=== PATIENT | male | born 1970 | race Caucasian/White ===

== ENCOUNTER 2016-05-28 01:58 | Emergency (ER) | payer MEDICAID ==
[~2016-05-28] VITALS: Ht 177.8 cm; Wt 76.7 kg
[~2016-05-28 01:58] MED LIST: CHOLESTEROL MED; HTN MED; REGULAR INSULIN SUBCUT
[2016-05-28 02:53] VITALS: BP_SYST 163
[2016-05-28] MEDS ORDERED: KETOROLAC TROMETHAMINE 60 MG/2 ML VIAL IM ONE (05:00)
[2016-05-28 05:29] VITALS: BP_SYST 163
== END 2016-05-28 05:29 | disposition home or self-care (01) ==
LOC: SED 01:58
DX: E11.40 Type 2 diabetes mellitus with diabetic neuropathy, unspecified (principal); M79.672 Pain in left foot; M79.671 Pain in right foot; I10 Essential (primary) hypertension; Z79.4 Long term (current) use of insulin
CPT/HCPCS: 82962; 96372; 99283; J1885

== ENCOUNTER 2017-05-21 10:20 | Emergency (ER) | payer MEDICAID ==
[~2017-05-21] VITALS: Ht 175.3 cm; Wt 79.4 kg
[2017-05-21 10:37] VITALS: BP_SYST 144
--- NOTE | 2017-05-21 10:42 | NUR ---
Placed in room 1 . Placed on monitoring specialist, blood pressure machine and pulse oximeter. To gown for exam. Side rails up. Report given to Karishma SOTELO.
--- NOTE | 2017-05-21 10:45 | NUR ---
rosalie person at bedside for eval.
--- NOTE | 2017-05-21 10:55 | NUR ---
presents with just falling donw 5 stairs and hit his head with loc. presents with deep lacteration to chin oozing. pt holding guaze to chin. c.o feeling dizzy. vss. sr on monitor. c/o pain to right leg. has full rom. states he has a headache.
[2017-05-21] MEDS ORDERED: DIPH-TET-PERTUS Vaccine 0.5 ML VIAL (ADACEL) I.M. ONE (11:00)
[2017-05-21] MEDS ORDERED: LIDOCAINE 1% 10 MG/ML, 20 ML MDV INJ ONE (11:00)
[2017-05-21 11:05] LABS: BASOPHILS % (AUTO) 0.2 % (0.0-2.0); EOSINOPHILS % (AUTO) 0.1 % (0.0-4.0); HEMATOCRIT 37.1 % (36-54); HEMOGLOBIN 12.9 g/dL (14.0-18.0); LYMPHOCYTES # (AUTO) 0.4 K/uL (1.0-5.5); LYMPHOCYTES % (AUTO) 4.2 % (20.5-51.5); MEAN CORPUSCULAR HEMOGLOBIN 33 pg (27-31); MEAN CORPUSCULAR HGB CONC 35 % (32-36); MEAN CORPUSCULAR VOLUME 94 fL (79.0-98.0); MONOCYTES # (AUTO) 0.4 K/uL (0.0-1.0); MONOCYTES % (AUTO) 4.3 % (1.7-9.3); NEUTROPHILS # (AUTO) 8.6 K/uL (1.8-7.7); NEUTROPHILS % (AUTO) 91.2 % (40.0-70.0); PLATELET COUNT (AUTO) 150 K/uL (130-430); RED BLOOD CELL COUNT(AUTO) 3.97 MIL/uL (4.2-6.2); RED CELL DISTRIBUTION WIDTH 12.9 % (9.0-15.0); WHITE BLOOD COUNT (AUTO) 9.4 K/uL (4.8-10.8)
[2017-05-21 11:19] LABS: ANION GAP 12 (5-15); CALCIUM 9.1 mg/dL (8.4-11.0); CHLORIDE 97 mmol/L (98-107); CREATININE 0.72 mg/dL (0.55-1.30); GLUCOSE 237 mg/dL (70-99); POTASSIUM 3.3 mmol/L (3.5-5.1); SODIUM SERUM 137 mmol/L (136-145); UREA NITROGEN, BLOOD 17 mg/dL (8-21)
[2017-05-21 11:31] LABS: ALANINE AMINOTRANSFERASE 54 U/L (12-78); ASPARTATE AMINOTRANSFERASE 111 U/L (10-37); GFR AFRICAN AMERICAN 151 mL/min (>90); TOTAL BILIRUBIN 2.8 mg/dL (0.0-1.0)
[2017-05-21 11:32] LABS: ACETAMINOPHEN < 1 ug/mL (1-30)
--- NOTE | 2017-05-21 11:35 | NUR ---
laceration to chin cleaned with sterile saline. t dap injection given
[2017-05-21 11:47] LABS: ALCOHOL, BLOOD < 3 mg/dL (<10)
--- NOTE | 2017-05-21 12:10 | NUR ---
BACK FROM CT.
--- NOTE | 2017-05-21 13:19 | NUR ---
URINE SENT TO LAB.
[2017-05-21 13:29] LABS: BILIRUBIN,URINE 1+ (NEGATIVE); BLOOD, URINE NEGATIVE (NEGATIVE); CLARITY/URINE SL HAZY (CLEAR); COLOR,URINE AMBER (YELLOW); GLUCOSE,URINE 2+ (NEGATIVE); KETONES,URINE 3+ (NEGATIVE); LEUKOCYTE ESTERASE ,URINE NEGATIVE (NEGATIVE); NITRITE, URINE NEGATIVE (NEGATIVE); PH,URINE 6.5 (5.0-8.0); PROTEIN URINE TRACE (NEGATIVE)
[2017-05-21 13:35] LABS: BACTERIA,URINE RARE /HPF (None Seen); MUCUS,URINE 1+ /LPF (None Seen); RBC,URINE 0-3 /HPF (0-3); WBC,URINE 0-3 /HPF (0-3)
[2017-05-21 13:40] LABS: BARBITURATE, URINE NEGATIVE (NEG <=200); BENZODIAZEPINE, URINE NEGATIVE (NEG <=150); CANNABINOID, URINE NEGATIVE (NEG <=50); COCAINE, URINE NEGATIVE (NEG <=150); METHAMPHETAMINES SCREEN,URINE NEGATIVE (NEG <=500); OPIATE, URINE NEGATIVE (NEG <=100); PHENCYCLIDINE SCREEN,URINE NEGATIVE (NEG <=25); UR TRICYCLIC ANTIDEPRESSANTS NEGATIVE (NEG <=300); URINE AMPHETAMINE NEGATIVE (NEG <=500); URINE METHADONE NEGATIVE (NEG <=200); URINE OXYCODONE SCREEN NEGATIVE (NEG <=100); URINE PROPOXYPHENE SCREEN NEGATIVE (NEG <=300)
[2017-05-21] MEDS ORDERED: MORPHINE SULFATE 10 MG/ML VIAL ONE (14:17)
--- NOTE | 2017-05-21 14:30 | NUR ---
DR GONZALES BACK IN TO DISCUSS DISCHARGE PLANS WITH PT.
--- NOTE | 2017-05-21 16:30 | NUR ---
Patient given written and verbal discharge instructions and verbalizes understanding. ER MD Zhong discussed with patient the results and treatment provided. Patient in stable condition. ID arm band removed. IV catheter removed intact and dressing applied, no active bleeding. Rx of Tylenol Codeine given. Patient educated on pain management and to follow up with PMD. Pain Scale 1. Dr. Zhong aware. Opportunity for questions provided and answered. Medication side effect fact sheet provided.
[2017-05-21 16:43] VITALS: BP_SYST 132
== END 2017-05-21 16:30 | disposition home or self-care (01) ==
LOC: SED 10:20
DX: S01.81XA Laceration without foreign body of other part of head, initial encounter (principal); S40.011A Contusion of right shoulder, initial encounter; E11.9 Type 2 diabetes mellitus without complications; I10 Essential (primary) hypertension; W10.9XXA Fall (on) (from) unspecified stairs and steps, initial encounter; Y93.01 Activity, walking, marching and hiking; Y92.89 Other specified places as the place of occurrence of the external cause; Y99.8 Other external cause status
CPT/HCPCS: 12013; 36415; 70450; 70486; 72125; 73030; 80053; 80307; 81000; 82550; 82962; 85025; 90471; 90715; 99285; G0480; G0482; J2001; J2270

== ENCOUNTER 2017-11-11 07:37 | Emergency (ER) | payer MEDICAID ==
[~2017-11-11] VITALS: Ht 172.7 cm; Wt 74.8 kg
[2017-11-11 07:40] VITALS: BP_SYST 186
[2017-11-11] MEDS ORDERED: NACL 0.9% 1,000 ML IV ONE ×2 (08:00→08:45)
[2017-11-11 08:03] LABS: BASOPHILS # (AUTO) 0.1 K/uL (0.0-0.2); BASOPHILS % (AUTO) 0.7 % (0.0-2.0); EOSINOPHILS # (AUTO) 0.1 K/uL (0.0-0.4); EOSINOPHILS % (AUTO) 0.7 % (0.0-4.0); HEMATOCRIT 43.7 % (36-54); HEMOGLOBIN 14.8 g/dL (14.0-18.0); LYMPHOCYTES # (AUTO) 2.3 K/uL (1.0-5.5); LYMPHOCYTES % (AUTO) 26.4 % (20.5-51.5); MEAN CORPUSCULAR HEMOGLOBIN 33 pg (27-31); MEAN CORPUSCULAR HGB CONC 34 % (32-36); MEAN CORPUSCULAR VOLUME 96 fL (79.0-98.0); MONOCYTES # (AUTO) 0.5 K/uL (0.0-1.0); MONOCYTES % (AUTO) 6.4 % (1.7-9.3); NEUTROPHILS # (AUTO) 5.6 K/uL (1.8-7.7); NEUTROPHILS % (AUTO) 65.8 % (40.0-70.0); PLATELET COUNT (AUTO) 180 K/uL (130-430); RED BLOOD CELL COUNT(AUTO) 4.55 MIL/uL (4.2-6.2); RED CELL DISTRIBUTION WIDTH 12.2 % (9.0-15.0); WHITE BLOOD COUNT (AUTO) 8.6 K/uL (4.8-10.8)
[2017-11-11 08:17] LABS: ANION GAP 19 (5-15); CALCIUM 9.2 mg/dL (8.4-11.0); CHLORIDE 97 mmol/L (98-107); CREATININE 0.92 mg/dL (0.55-1.30); GLUCOSE 220 mg/dL (70-99); POTASSIUM 3.3 mmol/L (3.5-5.1); SODIUM SERUM 136 mmol/L (136-145); UREA NITROGEN, BLOOD 8 mg/dL (8-21)
[2017-11-11 08:22] LABS: ALANINE AMINOTRANSFERASE 63 U/L (12-78); ALBUMIN 4.5 g/dL (3.4-4.8); ALCOHOL, BLOOD < 3 mg/dL (<10); ASPARTATE AMINOTRANSFERASE 109 U/L (10-37); GFR AFRICAN AMERICAN 114 mL/min (>90); LIPASE 117 U/L (73-393); TOTAL BILIRUBIN 3.3 mg/dL (0.0-1.0)
[2017-11-11] MEDS ORDERED: POTASSIUM CHLORIDE 20 MEQ/PKT PACKET PO ONE (09:00)
[2017-11-11 09:47] VITALS: BP_SYST 167
== END 2017-11-11 09:47 | disposition home or self-care (01) ==
LOC: SED 07:37
DX: F10.239 Alcohol dependence with withdrawal, unspecified (principal); I10 Essential (primary) hypertension
CPT/HCPCS: 36415; 80053; 83690; 85025; 99284; G0482; J7030

== ENCOUNTER 2017-11-14 19:53 | Emergency (ER) | payer MEDICAID ==
[~2017-11-14] VITALS: Ht 170.2 cm; Wt 72.6 kg
[2017-11-14 20:00] VITALS: BP_SYST 140
[2017-11-14] MEDS ORDERED: ONDANSETRON HCL 4 MG/2 ML VIAL IVP ONE (20:15)
[2017-11-14] MEDS ORDERED: FAMOTIDINE PF 20 MG/2 ML VIAL IVP ONE (20:15)
[2017-11-14 20:51] LABS: BASOPHILS % (AUTO) 0.6 % (0.0-2.0); EOSINOPHILS # (AUTO) 0.2 K/uL (0.0-0.4); EOSINOPHILS % (AUTO) 2.2 % (0.0-4.0); HEMATOCRIT 36.4 % (36-54); HEMOGLOBIN 12.9 g/dL (14.0-18.0); LYMPHOCYTES # (AUTO) 2.5 K/uL (1.0-5.5); LYMPHOCYTES % (AUTO) 36.6 % (20.5-51.5); MEAN CORPUSCULAR HEMOGLOBIN 34 pg (27-31); MEAN CORPUSCULAR HGB CONC 36 % (32-36); MEAN CORPUSCULAR VOLUME 95 fL (79.0-98.0); MONOCYTES # (AUTO) 0.6 K/uL (0.0-1.0); MONOCYTES % (AUTO) 9.1 % (1.7-9.3); NEUTROPHILS # (AUTO) 3.6 K/uL (1.8-7.7); NEUTROPHILS % (AUTO) 51.5 % (40.0-70.0); PLATELET COUNT (AUTO) 177 K/uL (130-430); RED BLOOD CELL COUNT(AUTO) 3.81 MIL/uL (4.2-6.2); RED CELL DISTRIBUTION WIDTH 11.9 % (9.0-15.0); WHITE BLOOD COUNT (AUTO) 6.9 K/uL (4.8-10.8)
[2017-11-14 20:52] LABS: CALCIUM 8.3 mg/dL (8.4-11.0); CREATININE 0.75 mg/dL (0.55-1.30)
[2017-11-14 20:55] LABS: PROTHROMBIN TIME 10.2 SECS (9.5-12.5)
[2017-11-14 20:57] LABS: ALBUMIN 3.6 g/dL (3.4-4.8); TOTAL BILIRUBIN 1.1 mg/dL (0.0-1.0)
[2017-11-14 21:31] LABS: BILIRUBIN,URINE NEGATIVE (NEGATIVE); BLOOD, URINE NEGATIVE (NEGATIVE); CLARITY/URINE CLEAR (CLEAR); COLOR,URINE YELLOW (YELLOW); GLUCOSE,URINE NEGATIVE (NEGATIVE); KETONES,URINE NEGATIVE (NEGATIVE); LEUKOCYTE ESTERASE ,URINE NEGATIVE (NEGATIVE); NITRITE, URINE NEGATIVE (NEGATIVE); PROTEIN URINE 1+ (NEGATIVE)
[2017-11-14 21:41] LABS: CKMB RELATIVE INDEX 0.3 (0.0-2.9); CREATINE KINASE MB 1.2 ng/mL (0-3.6)
[2017-11-14 21:43] LABS: BARBITURATE, URINE NEGATIVE (NEG <=200); BENZODIAZEPINE, URINE NEGATIVE (NEG <=150); CANNABINOID, URINE NEGATIVE (NEG <=50); COCAINE, URINE NEGATIVE (NEG <=150); METHAMPHETAMINES SCREEN,URINE NEGATIVE (NEG <=500); OPIATE, URINE NEGATIVE (NEG <=100); PHENCYCLIDINE SCREEN,URINE NEGATIVE (NEG <=25); UR TRICYCLIC ANTIDEPRESSANTS NEGATIVE (NEG <=300); URINE AMPHETAMINE NEGATIVE (NEG <=500); URINE METHADONE NEGATIVE (NEG <=200); URINE OXYCODONE SCREEN NEGATIVE (NEG <=100); URINE PROPOXYPHENE SCREEN NEGATIVE (NEG <=300)
[2017-11-14 22:00] LABS: BACTERIA,URINE FEW /HPF (None Seen); CALCIUM OXALATE CRYSTALS,UR 0-10 /HPF (None Seen); RBC,URINE 0-3 /HPF (0-3); WBC,URINE 0-3 /HPF (0-3); YEAST,URINE None Seen /HPF (None Seen)
[2017-11-14] MEDS ORDERED: NACL 0.9% 1,000 ML IV ONE (22:00)
[2017-11-14 22:01] LABS: MUCUS,URINE 3+ /LPF (None Seen)
[2017-11-15 01:06] VITALS: BP_SYST 124
== END 2017-11-15 01:06 | disposition home or self-care (01) ==
LOC: SED 19:53
DX: F10.129 Alcohol abuse with intoxication, unspecified (principal); R07.9 Chest pain, unspecified; I10 Essential (primary) hypertension; E11.9 Type 2 diabetes mellitus without complications
CPT/HCPCS: 36415; 71045; 80053; 80307; 81000; 82550; 82553; 84484; 85025; 85610; 85730; 93005; 96374; 96375; 99285; G0482; J2405; J3490; J7030

== ENCOUNTER 2017-12-25 20:20 | Inpatient (IN) | payer MEDICAID ==
[~2017-12-25] VITALS: Ht 177.8 cm; Wt 52.6 kg
[2017-12-25 20:25] VITALS: BP_SYST 165
[2017-12-25] MEDS ORDERED: KETOROLAC TROMETHAMINE 60 MG/2 ML VIAL IM ONE (21:00)
[2017-12-25 23:55] LABS: BASOPHILS # (AUTO) 0.1 K/uL (0.0-0.2); BASOPHILS % (AUTO) 0.8 % (0.0-2.0); HEMATOCRIT 40.3 % (36-54); HEMOGLOBIN 13.4 g/dL (14.0-18.0); LYMPHOCYTES # (AUTO) 0.4 K/uL (1.0-5.5); LYMPHOCYTES % (AUTO) 3.9 % (20.5-51.5); MEAN CORPUSCULAR HEMOGLOBIN 32 pg (27-31); MEAN CORPUSCULAR HGB CONC 33 % (32-36); MEAN CORPUSCULAR VOLUME 96 fL (79.0-98.0); MONOCYTES # (AUTO) 0.4 K/uL (0.0-1.0); MONOCYTES % (AUTO) 3.8 % (1.7-9.3); NEUTROPHILS # (AUTO) 10.4 K/uL (1.8-7.7); NEUTROPHILS % (AUTO) 91.5 % (40.0-70.0); PLATELET COUNT (AUTO) 185 K/uL (130-430); RED BLOOD CELL COUNT(AUTO) 4.21 MIL/uL (4.2-6.2); RED CELL DISTRIBUTION WIDTH 12.6 % (9.0-15.0); WHITE BLOOD COUNT (AUTO) 11.3 K/uL (4.8-10.8)
[2017-12-26 00:06] LABS: CALCIUM 9.4 mg/dL (8.4-11.0); CREATININE 0.62 mg/dL (0.55-1.30); POTASSIUM 3.6 mmol/L (3.5-5.1)
[2017-12-26 00:12] LABS: ALBUMIN 3.9 g/dL (3.4-4.8); INR 1.1 (0.80-1.20); PROTHROMBIN TIME 10.9 SECS (9.5-12.5); TOTAL BILIRUBIN 3.9 mg/dL (0.0-1.0)
[2017-12-26] MEDS ORDERED: KETOROLAC TROMETHAMINE 30 MG VIAL IVP PRN (03:30)
[2017-12-26] MEDS ORDERED: MORPHINE 4 MG/ML INJ. SYRINGE IVP PRN (03:30)
[2017-12-26] MEDS ORDERED: HYDROcodone/ACETAMIN 5-325 MG TAB (NORCO/ VICODIN) PO PRN (03:30)
[2017-12-26] MEDS ORDERED: MUPIROCIN 2% TOPICAL OINTMENT 22 GM NS PRN (04:00)
[2017-12-26] MEDS ORDERED: POTASSIUM CHLORIDE 20 MEQ TAB.PRT.SR PO PRN (04:00)
[2017-12-26] MEDS ORDERED: MAGNESIUM SULFATE 50 ML IV PRN (04:00)
[2017-12-26] MEDS ORDERED: DOCUSATE SODIUM 100 MG CAPSULE PO PRN (04:00)
[2017-12-26] MEDS ORDERED: ZOLPIDEM TARTRATE 5 MG TABLET PO PRN (04:00)
[2017-12-26] MEDS ORDERED: PROMETHAZINE HCL 25 MG/ML AMP IVP PRN (04:00)
[2017-12-26] MEDS ORDERED: LORazepam 2 MG/ML VIAL IVP PRN (04:00)
[2017-12-26] MEDS ORDERED: ACETAMINOPHEN 325 MG TABLET PO PRN (04:00)
[2017-12-26 05:02] VITALS: BP_SYST 159
[2017-12-26 05:20] LABS: BILIRUBIN,URINE NEGATIVE (NEGATIVE); CLARITY/URINE CLEAR (CLEAR); COLOR,URINE YELLOW (YELLOW); GLUCOSE,URINE TRACE (NEGATIVE); KETONES,URINE 2+ (NEGATIVE); LEUKOCYTE ESTERASE ,URINE NEGATIVE (NEGATIVE); NITRITE, URINE NEGATIVE (NEGATIVE); PROTEIN URINE 1+ (NEGATIVE)
[2017-12-26 05:31] LABS: PHOSPHORUS 2.1 mg/dL (2.7-4.5)
[2017-12-26] MEDS: NACL 0.9% 1,000 ML IV SCH ×3 (05:33→20:39)
[2017-12-26] MEDS ORDERED: cloNIDine HCL 0.1 MG TABLET PO PRN (05:45)
[2017-12-26 05:52] LABS: BARBITURATE, URINE NEGATIVE (NEG <=200); BENZODIAZEPINE, URINE NEGATIVE (NEG <=150); CANNABINOID, URINE NEGATIVE (NEG <=50); COCAINE, URINE NEGATIVE (NEG <=150); METHAMPHETAMINES SCREEN,URINE POSITIVE (NEG <=500); OPIATE, URINE NEGATIVE (NEG <=100); PHENCYCLIDINE SCREEN,URINE NEGATIVE (NEG <=25); UR TRICYCLIC ANTIDEPRESSANTS NEGATIVE (NEG <=300); URINE AMPHETAMINE POSITIVE (NEG <=500); URINE METHADONE NEGATIVE (NEG <=200); URINE OXYCODONE SCREEN NEGATIVE (NEG <=100); URINE PROPOXYPHENE SCREEN NEGATIVE (NEG <=300)
[2017-12-26 06:00] LABS: ALCOHOL, BLOOD < 3 mg/dL (<10)
[2017-12-26 06:05] LABS: BLOOD, URINE TRACE (NEGATIVE)
[2017-12-26 06:18] LABS: BACTERIA,URINE FEW /HPF (None Seen); MUCUS,URINE 1+ /LPF (None Seen); RBC,URINE 0-3 /HPF (0-3); WBC,URINE 0-3 /HPF (0-3)
[2017-12-26 08:00] VITALS: BP_SYST 148
[2017-12-26] MEDS ORDERED: GLUCOSE 15 GM GEL (in 37.5 GM TUBE) PO PRN ×2 (08:45)
[2017-12-26] MEDS ORDERED: DEXTROSE 50%-WATER 50 ML DISP.SYRIN IVP PRN ×2 (08:45)
[2017-12-26] MEDS ORDERED: FOLIC ACID 1 MG, THIAMINE HCL 100 MG, MAGNESIUM SULFATE 1 GM, MVI 10 ML in NACL 0.9% 1,... IV SCH (09:00)
[2017-12-26] MEDS: LORazepam 2 MG/ML VIAL IVP SCH ×3 (09:37→21:57)
[2017-12-26] MEDS: HEPARIN SODIUM,PORCINE 5000 UNITS/ML VIAL SUBCUT SCH ×2 (09:40→20:27)
[2017-12-26] MEDS ORDERED: LORazepam 2 MG/ML VIAL ONE (09:40)
[2017-12-26 11:27] VITALS: BP_SYST 136
[2017-12-26 15:31] VITALS: BP_SYST 136
[2017-12-26] MEDS ORDERED: NAPH,MB-DB/K PH,MBDB 250 MG TAB PO ONE (16:45)
[2017-12-26 20:15] VITALS: BP_SYST 156
[2017-12-26] MEDS: INSULIN REGULAR, HUMAN 100 UNITS/ML, 10 ML VIAL (novoLIN R) SUBCUT PRN (20:38)
[2017-12-27 00:26] VITALS: BP_SYST 153
[2017-12-27] MEDS: LORazepam 2 MG/ML VIAL IVP SCH ×3 (05:27→22:24)
[2017-12-27] MEDS: NACL 0.9% 1,000 ML IV SCH ×2 (06:24→18:58)
[2017-12-27 07:17] LABS: CALCIUM 8.3 mg/dL (8.4-11.0); CREATININE 0.61 mg/dL (0.55-1.30); POTASSIUM 3.3 mmol/L (3.5-5.1)
[2017-12-27 07:39] LABS: BASOPHILS # (AUTO) 0.1 K/uL (0.0-0.2); BASOPHILS % (AUTO) 0.9 % (0.0-2.0); EOSINOPHILS # (AUTO) 0.1 K/uL (0.0-0.4); HEMATOCRIT 38.4 % (36-54); HEMOGLOBIN 12.7 g/dL (14.0-18.0); LYMPHOCYTES # (AUTO) 1.5 K/uL (1.0-5.5); MEAN CORPUSCULAR HEMOGLOBIN 32 pg (27-31); MEAN CORPUSCULAR HGB CONC 33 % (32-36); MEAN CORPUSCULAR VOLUME 97 fL (79.0-98.0); MONOCYTES # (AUTO) 0.7 K/uL (0.0-1.0); MONOCYTES % (AUTO) 7.8 % (1.7-9.3); NEUTROPHILS % (AUTO) 74.3 % (40.0-70.0); PLATELET COUNT (AUTO) 167 K/uL (130-430); RED BLOOD CELL COUNT(AUTO) 3.98 MIL/uL (4.2-6.2); RED CELL DISTRIBUTION WIDTH 12.4 % (9.0-15.0); WHITE BLOOD COUNT (AUTO) 9.4 K/uL (4.8-10.8)
[2017-12-27 08:00] VITALS: BP_SYST 139
[2017-12-27] MEDS: FOLIC ACID 1 MG TABLET PO SCH (08:20)
[2017-12-27] MEDS: THIAMINE HCL 100 MG TABLET PO SCH (08:20)
[2017-12-27] MEDS: HEPARIN SODIUM,PORCINE 5000 UNITS/ML VIAL SUBCUT SCH ×2 (08:21→20:53)
[2017-12-27] MEDS: cefTRIAXone 1 GM in D5W 50 ML IV SCH (10:17)
[2017-12-27 11:32] VITALS: BP_SYST 142
[2017-12-27] MEDS: ACETAMINOPHEN 325 MG TABLET PO PRN ×2 (14:22→20:45)
[2017-12-27 15:26] VITALS: BP_SYST 148
[2017-12-27 20:24] VITALS: BP_SYST 135
[2017-12-27] MEDS: INSULIN REGULAR, HUMAN 100 UNITS/ML, 10 ML VIAL (novoLIN R) SUBCUT PRN (20:55)
[2017-12-28 00:11] VITALS: BP_SYST 158
[2017-12-28] MEDS: NACL 0.9% 1,000 ML IV SCH ×2 (05:47→15:51)
[2017-12-28] MEDS: LORazepam 2 MG/ML VIAL IVP SCH ×2 (05:48→14:15)
[2017-12-28 06:57] LABS: BASOPHILS # (AUTO) 0.1 K/uL (0.0-0.2); BASOPHILS % (AUTO) 0.9 % (0.0-2.0); EOSINOPHILS # (AUTO) 0.2 K/uL (0.0-0.4); HEMOGLOBIN 12.7 g/dL (14.0-18.0); LYMPHOCYTES # (AUTO) 1.4 K/uL (1.0-5.5); LYMPHOCYTES % (AUTO) 20.3 % (20.5-51.5); MEAN CORPUSCULAR HEMOGLOBIN 33 pg (27-31); MEAN CORPUSCULAR HGB CONC 34 % (32-36); MEAN CORPUSCULAR VOLUME 98 fL (79.0-98.0); MONOCYTES # (AUTO) 0.7 K/uL (0.0-1.0); MONOCYTES % (AUTO) 9.9 % (1.7-9.3); NEUTROPHILS # (AUTO) 4.3 K/uL (1.8-7.7); NEUTROPHILS % (AUTO) 65.9 % (40.0-70.0); PLATELET COUNT (AUTO) 163 K/uL (130-430); RED BLOOD CELL COUNT(AUTO) 3.87 MIL/uL (4.2-6.2); RED CELL DISTRIBUTION WIDTH 12.5 % (9.0-15.0); WHITE BLOOD COUNT (AUTO) 6.7 K/uL (4.8-10.8)
[2017-12-28 07:21] LABS: CALCIUM 8.5 mg/dL (8.4-11.0); CREATININE 0.55 mg/dL (0.55-1.30); POTASSIUM 3.7 mmol/L (3.5-5.1)
[2017-12-28 08:20] VITALS: BP_SYST 152
[2017-12-28] MEDS: FOLIC ACID 1 MG TABLET PO SCH (09:15)
[2017-12-28] MEDS: HEPARIN SODIUM,PORCINE 5000 UNITS/ML VIAL SUBCUT SCH (09:15)
[2017-12-28] MEDS: THIAMINE HCL 100 MG TABLET PO SCH (09:15)
[2017-12-28] MEDS: cefTRIAXone 1 GM in D5W 50 ML IV SCH (09:16)
[2017-12-28 12:25] VITALS: BP_SYST 144
[2017-12-28 15:36] VITALS: BP_SYST 144
[2017-12-28 16:47] VITALS: BP_SYST 144
[2017-12-28] MEDS ORDERED: CEPH-568 PO (17:05)
== END 2017-12-28 17:30 | disposition home or self-care (01) | DRG 135 ==
LOC: SED 20:20 → STU 12-26 03:26 → SMU 12-26 04:01 → STU 12-26 16:25
PROVIDERS: ADMIT General Practice; ATTEND General Practice
DX: S22.42XA Multiple fractures of ribs, left side, initial encounter for closed fracture (principal); N17.0 Acute kidney failure with tubular necrosis; F07.81 Postconcussional syndrome; E83.39 Other disorders of phosphorus metabolism; L03.116 Cellulitis of left lower limb; S09.8XXA Other specified injuries of head, initial encounter; F10.239 Alcohol dependence with withdrawal, unspecified; F14.10 Cocaine abuse, uncomplicated; I10 Essential (primary) hypertension; S02.2XXA Fracture of nasal bones, initial encounter for closed fracture; E78.5 Hyperlipidemia, unspecified; W01.198A Fall on same level from slipping, tripping and stumbling with subsequent striking against other object, initial encounter; R74.0 Nonspecific elevation of levels of transaminase and lactic acid dehydrogenase [LDH]; E11.9 Type 2 diabetes mellitus without complications; L03.211 Cellulitis of face; Z72.0 Tobacco use; Y93.89 Activity, other specified; Y92.89 Other specified places as the place of occurrence of the external cause; Y99.8 Other external cause status
CPT/HCPCS: 36415; 70486-TC; 71250-TC; 76705; 80048; 80053; 80307; 81000-TC; 82962; 83036; 83735-TC; 84100-TC; 85025; 85610-TC; 85730-TC; 90656; 93005; 96372; 97116-GP; 99285; G0482; J0696; J1644; J1815; J1885; J2060; J2270; J3411; J3475; J3490; J7030; J7060

== ENCOUNTER 2018-04-16 15:46 | Emergency (ER) | payer MEDICAID ==
[~2018-04-16] VITALS: Ht 170.2 cm; Wt 70.3 kg
[2018-04-16 15:46] VITALS: BP_SYST 127
[~2018-04-16 15:46] MED LIST changes: +CEPH-568 PO; -CHOLESTEROL MED; -HTN MED; -REGULAR INSULIN SUBCUT
[2018-04-16] MEDS ORDERED: NACL 0.9% 1,000 ML IV ONE (15:55)
[2018-04-16] MEDS ORDERED: BACITRACIN 1 GM OINT TP ONE (16:00)
[2018-04-16] MEDS ORDERED: DIPH-TET-PERTUS Vaccine 0.5 ML VIAL (ADACEL) IM ONE (16:00)
[2018-04-16] MEDS ORDERED: LIDOCAINE 1% 10 MG/ML, 20 ML MDV IJ ONE (16:00)
[2018-04-16 16:44] LABS: BASOPHILS # (AUTO) 0.1 K/uL (0.0-0.2); BASOPHILS % (AUTO) 1.4 % (0.0-2.0); EOSINOPHILS # (AUTO) 0.2 K/uL (0.0-0.4); EOSINOPHILS % (AUTO) 2.5 % (0.0-4.0); HEMATOCRIT 39.6 % (36-54); HEMOGLOBIN 13.4 g/dL (14.0-18.0); LYMPHOCYTES # (AUTO) 3.1 K/uL (1.0-5.5); LYMPHOCYTES % (AUTO) 38.1 % (20.5-51.5); MEAN CORPUSCULAR HEMOGLOBIN 32 pg (27-31); MEAN CORPUSCULAR HGB CONC 34 % (32-36); MEAN CORPUSCULAR VOLUME 94 fL (79.0-98.0); MONOCYTES # (AUTO) 0.5 K/uL (0.0-1.0); MONOCYTES % (AUTO) 6.7 % (1.7-9.3); NEUTROPHILS # (AUTO) 4.2 K/uL (1.8-7.7); NEUTROPHILS % (AUTO) 51.3 % (40.0-70.0); PLATELET COUNT (AUTO) 304 K/uL (130-430); RED CELL DISTRIBUTION WIDTH 13.9 % (9.0-15.0); WHITE BLOOD COUNT (AUTO) 8.1 K/uL (4.8-10.8)
[2018-04-16 16:48] LABS: ANION GAP 14 (5-15); CALCIUM 8.5 mg/dL (8.4-11.0); CHLORIDE 105 mmol/L (98-107); CREATININE 0.57 mg/dL (0.55-1.30); GLUCOSE 143 mg/dL (70-99); POTASSIUM 3.9 mmol/L (3.5-5.1); SODIUM SERUM 145 mmol/L (136-145); UREA NITROGEN, BLOOD 15 mg/dL (8-21)
[2018-04-16 16:51] LABS: GFR AFRICAN AMERICAN 197 mL/min (>90)
[2018-04-16 16:53] LABS: PROTHROMBIN TIME 9.9 SECS (9.5-12.5)
[2018-04-16 16:56] LABS: ALANINE AMINOTRANSFERASE 72 U/L (12-78); ALBUMIN 3.7 g/dL (3.4-4.8); AMYLASE 49 U/L (0-100); ASPARTATE AMINOTRANSFERASE 161 U/L (10-37); LIPASE 313 U/L (73-393); TOTAL BILIRUBIN 0.7 mg/dL (0.0-1.0)
[2018-04-16 17:02] LABS: ALCOHOL, BLOOD 480 mg/dL (<10)
[2018-04-16] MEDS ORDERED: FOLIC ACID 1 MG, THIAMINE HCL 100 MG, MAGNESIUM SULFATE 1 GM, MVI 10 ML in NACL 0.9% 1,... IV ONE (17:15)
[2018-04-16] MEDS ORDERED: FOLIC ACID IV ONE ×2 (17:28→17:29)
[2018-04-16] MEDS ORDERED: MVI IV ONE ×2 (17:28→17:29)
[2018-04-16] MEDS ORDERED: MAGNESIUM SULFATE IV ONE ×2 (17:28→17:29)
[2018-04-16] MEDS ORDERED: NACL IV ONE (17:28)
[2018-04-16] MEDS ORDERED: THIAMINE HCL IV ONE (17:29)
[2018-04-16] MEDS ORDERED: [UNRECOGNIZED DRUG - OTHER] IV ONE (17:29)
[2018-04-17 02:22] VITALS: BP_SYST 122
== END 2018-04-17 02:22 | disposition home or self-care (01) ==
LOC: SED 15:46
DX: S01.01XA Laceration without foreign body of scalp, initial encounter (principal); F10.129 Alcohol abuse with intoxication, unspecified; E11.9 Type 2 diabetes mellitus without complications; I10 Essential (primary) hypertension; W22.8XXA Striking against or struck by other objects, initial encounter; Y93.89 Activity, other specified; Y92.89 Other specified places as the place of occurrence of the external cause; Y99.8 Other external cause status; Y90.8 Blood alcohol level of 240 mg/100 ml or more
CPT/HCPCS: 12002; 36415; 70450; 71045; 80053; 82150; 83605; 83690; 84484; 85025; 85610; 85730; 87040; 90471; 90715; 93005; 96365; 96366; 99284; G0481; G0482; J2001; J3411; J3475; J3490; J7030

== ENCOUNTER 2018-04-22 17:34 | Emergency (ER) | payer MEDICAID ==
[~2018-04-22] VITALS: Ht 177.8 cm; Wt 70.8 kg
[2018-04-22 17:39] VITALS: BP_SYST 142
[2018-04-22 18:24] VITALS: BP_SYST 142
== END 2018-04-22 18:24 | disposition home or self-care (01) ==
LOC: SED 17:34
DX: S01.01XD Laceration without foreign body of scalp, subsequent encounter (principal); I10 Essential (primary) hypertension; E11.9 Type 2 diabetes mellitus without complications; W22.8XXD Striking against or struck by other objects, subsequent encounter
CPT/HCPCS: 99282

== ENCOUNTER 2018-04-25 16:52 | Emergency (ER) | payer MEDICAID ==
[~2018-04-25] VITALS: Ht 177.8 cm; Wt 71.7 kg
[2018-04-25 17:23] VITALS: BP_SYST 155
--- NOTE | 2018-04-25 17:40 | NUR ---
Patient to ER bed H2 to gown for evaluation. Side rails up.
--- NOTE | 2018-04-25 17:40 | NUR ---
Pt brought by self, A&Ox4, pt presents to ER for sutur removal from back of head, no s/s of infection, skin pink and warm, cap refill <3, VS WNL, afebrile.
--- NOTE | 2018-04-25 17:41 | NUR ---
Jennifer Newton MACHINE HEEL SE[employer] FITTER at bedside examining patient
[2018-04-25 17:43] VITALS: BP_SYST 142
--- NOTE | 2018-04-25 17:43 | NUR ---
Patient given verbal discharge instructions and verbalizes understanding. ER MD discussed with patient the results and treatment provided. Patient in stable condition. ID arm band removed. No Rx given. Patient educated on pain management and to follow up with PMD. Pain Scale 0/10 . Opportunity for questions provided and answered. Medication side effect fact sheet provided. Pt walked out ER without paperwork.
[2018-04-25] MEDS ORDERED: BACITRACIN 1 GM OINT TP ONE (17:45)
== END 2018-04-25 17:43 | disposition home or self-care (01) ==
LOC: SED 16:52
DX: S01.01XD Laceration without foreign body of scalp, subsequent encounter (principal); E11.9 Type 2 diabetes mellitus without complications; I10 Essential (primary) hypertension; W22.8XXD Striking against or struck by other objects, subsequent encounter
CPT/HCPCS: 99281

== ENCOUNTER 2018-05-09 18:14 | Emergency (ER) | payer MEDICAID ==
[~2018-05-09] VITALS: Ht 177.8 cm; Wt 84.8 kg
[2018-05-09 18:25] VITALS: BP_SYST 143
[2018-05-09] MEDS ORDERED: DEXAMETHASONE SOD PHOSPHATE 10 MG/ML VIAL IM ONE (20:15)
[2018-05-09] MEDS ORDERED: KETOROLAC TROMETHAMINE 60 MG/2 ML VIAL IM ONE (20:15)
[2018-05-09 20:39] VITALS: BP_SYST 135
== END 2018-05-09 20:39 | disposition home or self-care (01) ==
LOC: SED 18:14
DX: M54.31 Sciatica, right side (principal); E11.9 Type 2 diabetes mellitus without complications; I10 Essential (primary) hypertension
CPT/HCPCS: 73564; 96372; 99283; J1100; J1885

== ENCOUNTER 2018-07-12 17:19 | Emergency (ER) | payer MEDICAID ==
[~2018-07-12] VITALS: Ht 175.3 cm; Wt 71.2 kg
[2018-07-12 17:29] VITALS: BP_SYST 143
[2018-07-12 18:23] VITALS: BP_SYST 143
== END 2018-07-12 18:23 | disposition home or self-care (01) ==
LOC: SED 17:19
DX: S01.01XD Laceration without foreign body of scalp, subsequent encounter (principal); E11.9 Type 2 diabetes mellitus without complications; I10 Essential (primary) hypertension; F32.9 Major depressive disorder, single episode, unspecified; X58.XXXD Exposure to other specified factors, subsequent encounter
CPT/HCPCS: 99281

== ENCOUNTER 2018-09-03 14:21 | Emergency (ER) | payer MEDICAID ==
[~2018-09-03] VITALS: Ht 167.6 cm; Wt 56.7 kg
[2018-09-03 14:27] VITALS: BP_SYST 138
[2018-09-03] MEDS ORDERED: FAMOTIDINE PF 20 MG/2 ML VIAL IVP ONE (14:45)
[2018-09-03] MEDS ORDERED: NACL 0.9% 1,000 ML IV ONE (14:45)
[2018-09-03 15:05] LABS: BASOPHILS # (AUTO) 0.1 K/uL (0.0-0.2); EOSINOPHILS # (AUTO) 0.1 K/uL (0.0-0.4); EOSINOPHILS % (AUTO) 2.4 % (0.0-4.0); HEMATOCRIT 37.5 % (36-54); HEMOGLOBIN 12.6 g/dL (14.0-18.0); LYMPHOCYTES # (AUTO) 2.4 K/uL (1.0-5.5); LYMPHOCYTES % (AUTO) 42.6 % (20.5-51.5); MEAN CORPUSCULAR HEMOGLOBIN 32 pg (27-31); MEAN CORPUSCULAR HGB CONC 34 % (32-36); MEAN CORPUSCULAR VOLUME 95 fL (79.0-98.0); MONOCYTES # (AUTO) 0.3 K/uL (0.0-1.0); MONOCYTES % (AUTO) 5.6 % (1.7-9.3); NEUTROPHILS # (AUTO) 2.7 K/uL (1.8-7.7); NEUTROPHILS % (AUTO) 47.4 % (40.0-70.0); PLATELET COUNT (AUTO) 200 K/uL (130-430); RED BLOOD CELL COUNT(AUTO) 3.96 MIL/uL (4.2-6.2); RED CELL DISTRIBUTION WIDTH 13.4 % (9.0-15.0); WHITE BLOOD COUNT (AUTO) 5.6 K/uL (4.8-10.8)
[2018-09-03 15:25] LABS: CALCIUM 8.4 mg/dL (8.4-11.0); CREATININE 0.57 mg/dL (0.55-1.30); POTASSIUM 3.3 mmol/L (3.5-5.1)
[2018-09-03 15:28] LABS: INR 1.1 (0.80-1.20); PROTHROMBIN TIME 10.9 SECS (9.5-12.5)
[2018-09-03 15:30] LABS: BILIRUBIN,URINE NEGATIVE (NEGATIVE); BLOOD, URINE NEGATIVE (NEGATIVE); CLARITY/URINE CLEAR (CLEAR); COLOR,URINE YELLOW (YELLOW); GLUCOSE,URINE NEGATIVE (NEGATIVE); KETONES,URINE TRACE (NEGATIVE); LEUKOCYTE ESTERASE ,URINE NEGATIVE (NEGATIVE); NITRITE, URINE NEGATIVE (NEGATIVE); PROTEIN URINE NEGATIVE (NEGATIVE)
[2018-09-03 15:32] LABS: ALBUMIN 3.5 g/dL (3.4-4.8); TOTAL BILIRUBIN 1.3 mg/dL (0.0-1.0)
[2018-09-03 15:58] LABS: BARBITURATE, URINE NEGATIVE (NEG <=200); BENZODIAZEPINE, URINE NEGATIVE (NEG <=150); CANNABINOID, URINE NEGATIVE (NEG <=50); COCAINE, URINE NEGATIVE (NEG <=150); METHAMPHETAMINES SCREEN,URINE NEGATIVE (NEG <=500); OPIATE, URINE NEGATIVE (NEG <=100); PHENCYCLIDINE SCREEN,URINE NEGATIVE (NEG <=25); UR TRICYCLIC ANTIDEPRESSANTS NEGATIVE (NEG <=300); URINE AMPHETAMINE NEGATIVE (NEG <=500); URINE METHADONE NEGATIVE (NEG <=200); URINE OXYCODONE SCREEN NEGATIVE (NEG <=100); URINE PROPOXYPHENE SCREEN NEGATIVE (NEG <=300)
[2018-09-03 17:23] VITALS: BP_SYST 132
== END 2018-09-03 17:25 | disposition home or self-care (01) ==
LOC: SED 14:21
DX: F10.129 Alcohol abuse with intoxication, unspecified (principal); R10.32 Left lower quadrant pain; E11.9 Type 2 diabetes mellitus without complications; I10 Essential (primary) hypertension; F32.9 Major depressive disorder, single episode, unspecified; Y90.8 Blood alcohol level of 240 mg/100 ml or more
CPT/HCPCS: 36415; 74021; 80053; 80307; 81003; 82140; 83690; 85025; 85610; 96374; 99284; G0482; J3490; J7030

== ENCOUNTER 2023-08-09 19:51 | Emergency (ER) | payer MEDICAID ==
[~2023-08-09] VITALS: Ht 177.8 cm; Wt 79.8 kg
[~2023-08-09 19:51] MED LIST changes: -CEPH-568 PO; +CLIN-142 PO; +GLU500 PO; +HCT25 PO; +LISI10TA29 PO; +PIOG15TA8 PO
[2023-08-09 20:18] VITALS: BP_SYST 124; PULSE 79; RESP 18; TEMP 97.9; O2SAT 99
[2023-08-09] MEDS: KETOROLAC TROMETHAMINE 60 MG/2 ML VIAL IM ONE (21:02)
[2023-08-09] MEDS: predniSONE 20 MG TABLET PO ONE (21:12)
[2023-08-09] MEDS ORDERED: IBUP-1969 PO (21:13)
[2023-08-09] MEDS ORDERED: HYDR-3917 PO (21:13)
[2023-08-09 21:44] VITALS: BP_SYST 124; PULSE 79; RESP 18; TEMP 97.9; O2SAT 99
== END 2023-08-09 21:44 | disposition home or self-care (01) ==
LOC: SED 19:51
DX: S89.92XA Unspecified injury of left lower leg, initial encounter (principal); E11.9 Type 2 diabetes mellitus without complications; I10 Essential (primary) hypertension; F32.A Depression, unspecified; Z79.899 Other long term (current) drug therapy; Z79.2 Long term (current) use of antibiotics; X58.XXXA Exposure to other specified factors, initial encounter; Y93.89 Activity, other specified; Y92.89 Other specified places as the place of occurrence of the external cause; Y99.8 Other external cause status
CPT/HCPCS: 99283; 29505; 73564; 96372; J7512; J1885